=== PATIENT | female | born 1990 | race Caucasian/White ===

== ENCOUNTER → 2017-12-02 | Outpatient (CLI) | payer BC | LOC: COL.LAB 10:55 | DX: N23 Unspecified renal colic (principal) ==

== ENCOUNTER 2018-02-02 18:08 | Emergency (ER) | payer BC ==
[~2018-02-02] VITALS: Ht 170.2 cm; Wt 84.1 kg
[2018-02-02 18:14] VITALS: TEMP 98
[2018-02-02] MEDS ORDERED: LO LOESTRIN FE1 TAB PO (19:01)
[2018-02-02 19:22] VITALS: BP 135/76; PULSE 85
== END 2018-02-02 19:23 | disposition home or self-care (01) ==
LOC: COL.ER 18:08
DX: G43.909 Migraine, unspecified, not intractable, without status migrainosus (principal)

== ENCOUNTER → 2018-02-07 | Outpatient (CLI) | payer BC ==
[~2018-02-07] MED LIST: LO LOESTRIN FE1 TAB PO
[2018-02-07 23:02] LABS: RHEUMATOID FACTOR-SCREEN <15 IU/mL (0-29)
== END ==
LOC: COL.LAB 10:05
PROVIDERS: Family Medicine
DX: M79.18 Myalgia, other site (principal)

== ENCOUNTER 2018-03-14 08:16 | Emergency (ER) | payer BC ==
[~2018-03-14] VITALS: Ht 170.2 cm; Wt 81.8 kg
[2018-03-14 09:00] LABS: COLLECTION METHOD CLEAN CATCH
[2018-03-14 09:06] LABS: MUCOUS Present /lpf; PH 5 (5-8); URINE APPEARANCE Hazy; URINE BACTERIA None Seen /hpf; URINE BILIRUBIN Negative (NEGATIVE); URINE BLOOD Negative (NEGATIVE); URINE COLOR Yellow; URINE GLUCOSE Negative (NEGATIVE); URINE KETONE Negative (NEGATIVE); URINE LEUKOCYTE ESTERASE Negative (NEGATIVE); URINE NITRATE Negative (NEGATIVE); URINE PROTEIN(semi-quant) Negative (NEGATIVE); URINE RBC 0-2 /hpf; URINE UROBILINOGEN Negative (NEGATIVE)
[2018-03-14] MEDS ORDERED: FLEXERIL 1010 MG/TAB PO (09:25)
[2018-03-14] MEDS ORDERED: NORCO 325 MG-51 TAB PO (09:25)
[2018-03-14] MEDS ORDERED: MEDROL 4MG DOSPA4 MG PO (09:25)
[2018-03-14 09:35] VITALS: BP 119/80; PULSE 79; TEMP 96.8
== END 2018-03-14 09:58 | disposition home or self-care (01) ==
LOC: COL.ER 08:16
PROVIDERS: Physician Assistant
DX: S16.1XXA Strain of muscle, fascia and tendon at neck level, initial encounter (principal); G44.209 Tension-type headache, unspecified, not intractable; G43.909 Migraine, unspecified, not intractable, without status migrainosus; X50.9XXA Other and unspecified overexertion or strenuous movements or postures, initial encounter
CPT/HCPCS: J1885

== ENCOUNTER → 2018-05-13 | Outpatient (CLI) | payer BC ==
[~2018-05-13] MED LIST changes: +FLEXERIL 1010 MG/TAB PO; +MEDROL 4MG DOSPA4 MG PO; +NORCO 325 MG-51 TAB PO
== END ==
LOC: MC.RAD 05-08 09:00
DX: N64.4 Mastodynia (principal)

== ENCOUNTER → 2019-02-10 | Outpatient (CLI) | payer BC | LOC: COL.RAD 08:08 | DX: R10.10 Upper abdominal pain, unspecified (principal) ==